=== PATIENT | male | born 1975 | race American Indian/Alaskan Native ===

== ENCOUNTER 2016-10-21 04:48 | Emergency (ER) | payer OTHER ==
[2016-10-21] MEDS ORDERED: CATAPRES PO ONE ×2 (05:32→06:33)
[2016-10-21 06:02] LABS: Basophils % (Auto) 0.5 % (0.0-1.8); Eosinophils % (Auto) 4.6 % (0.0-4.3); Hematocrit 37.9 % (35.5-45.6); Hemoglobin 12.3 gm/dl (11.8-15.2); Mean Corpuscular HGB Conc 33 % (32-34); Mean Corpuscular Hemoglobin 26 pg (28-32); Mean Corpuscular Volume 81 fl (84-94); Platelet Count 221 K/mm3 (140-440); Red Blood Count 4.66 M/mm3 (3.65-5.03); Red Cell Distribution Width 15.1 % (13.2-15.2); White Blood Count 9.7 K/mm3 (4.5-11.0)
[2016-10-21] MEDS ORDERED: PROVENTIL IH ONE ×2 (06:05→07:49)
[2016-10-21 06:22] LABS: Anion Gap 17 mmol/L; Blood Urea Nitrogen 17 mg/dL (9-20); Carbon Dioxide 26 mmol/L (22-30); Chloride 98.9 mmol/L (98-107); Glucose 123 mg/dL (75-100); Potassium 3.5 mmol/L (3.6-5.0); Sodium 138 mmol/L (137-145)
[2016-10-21] MEDS ORDERED: DELTASONE PO ONE (06:33)
[2016-10-21] MEDS ORDERED: K-DUR PO ONE (06:37)
--- NOTE | 2016-10-21 06:37 | Emergency Department Report ---
ED Shortness of Breath HPI - General Chief Complaint: High BP Stated Complaint: ASTHMA Time Seen by Provider: 10/21/16 06:16 Source: patient Mode of arrival: Ambulatory Limitations: No Limitations - History of Present Illness Initial Comments: 40-year-old male with a past medical history of obesity, hypertension, sleep apnea, and asthma presents hospital complaints of shortness of breath 3 days. Symptoms worse with exertion. Some improvement with rest. Patient denies any chest pain. Positive cough productive yellow sputum on occasion. No fever, leg edema, or calf tenderness reported. Patient's been noncompliant with his blood pressure medications and asthma medications 1 month. PMD: None Previous medical record reviewed: Patient had a cardiac cath performed here with normal coronary arteries. Borderline LV function and received IV Lasix with improvement in his coughing. Echocardiogram performed showed EF of 55-60% - Related Data Previous Rx's Medication Instructions Recorded Last Taken Type Albuterol Sulfate [Albuterol 0.63% 0.63 mg IH TID #30 ml 03/17/15 Unknown Rx NEBS] Furosemide [Lasix TAB] 40 mg PO QDAY #30 tablet 03/17/15 Unknown Rx Spironolactone [Aldactone] 25 mg PO QDAY #30 tablet 03/17/15 Unknown Rx ALBUTEROL Inhaler [ProAir HFA 2 puff IH QID PRN #1 inhalation 10/21/16 Unknown Rx Inhaler] ALBUTEROL NEB's [Proventil 0.083% 2.5 mg IH TID PRN #1 box 10/21/16 Unknown Rx NEBS] Metoprolol [Lopressor TAB] 100 mg PO BID #60 tablet 10/21/16 Unknown Rx Prednisone [predniSONE 10 mg 10 mg PO .TAPER #1 tab.ds.pk 10/21/16 Unknown Rx (6-Day Pack, 21 Tabs)] Valsartan [Diovan] 320 mg PO QDAY #30 tablet 10/21/16 Unknown Rx amLODIPine [Norvasc] 10 mg PO DAILY #30 tablet 10/21/16 Unknown Rx Allergies Allergy/AdvReac Type Severity Reaction Status Date / Time aspirin Allergy Unknown Verified 03/13/15 04:40 shellfish derived Allergy Unknown Verified 03/15/15 15:18 ED Review of Systems ROS: Stated complaint: ASTHMA Other details as noted in HPI Comment: All other systems reviewed and negative Other: Constitutional: No fevers chills Eyes: No eye pain visual changes ENT: No ear pain or throat pain Neck: Denies pain Respiratory: As per HPI Cardiovascular: Denies chest pain GI: Denies abdominal pain, nausea, vomiting, diarrhea : Denies dysuria Musculoskeletal: Denies back pain Skin: Denies rash, lesions, erythema Neurologic: Denies headache, numbness, weakness ED Past Medical Hx - Past Medical History Hx Hypertension: Yes Hx Asthma: Yes Additional medical history: sleep apnea - Surgical History Past Surgical History?: No - Social History Smoking Status: Never Smoker Substance Use Type: None - Medications Home Medications: Home Medications Medication Instructions Recorded Confirmed Last Taken Type Albuterol Sulfate [Albuterol 0.63% 0.63 mg IH TID #30 ml 03/17/15 Unknown Rx NEBS] Furosemide [Lasix TAB] 40 mg PO QDAY #30 tablet 03/17/15 Unknown Rx Spironolactone [Aldactone] 25 mg PO QDAY #30 tablet 03/17/15 Unknown Rx ALBUTEROL Inhaler [ProAir HFA 2 puff IH QID PRN #1 inhalation 10/21/16 Unknown Rx Inhaler] ALBUTEROL NEB's [Proventil 0.083% 2.5 mg IH TID PRN #1 box 10/21/16 Unknown Rx NEBS] Metoprolol [Lopressor TAB] 100 mg PO BID #60 tablet 10/21/16 Unknown Rx Prednisone [predniSONE 10 mg 10 mg PO .TAPER #1 tab.ds.pk 10/21/16 Unknown Rx (6-Day Pack, 21 Tabs)] Valsartan [Diovan] 320 mg PO QDAY #30 tablet 10/21/16 Unknown Rx amLODIPine [Norvasc] 10 mg PO DAILY #30 tablet 10/21/16 Unknown Rx ED Physical Exam - General Limitations: No Limitations - Other Other exam information: General: No limitations, patient is alert in no acute distress Head exam: Atraumatic, normocephalic Eyes exam: Normal appearance, pupils equal reactive to light, extraocular movements intact ENT: Moist mucous membrane, normal oropharynx Neck exam: Normal inspection, full range of motion, no meningismus nontender Respiratory exam: Wheezing initially reported by triage nurse. I auscultated lungs while albuterol 5mg nebulized treatment was almost complete. Diminished breath sounds but no wheezes or crackles Cardiovascular: Mild tachycardia regular rhythm Abdomen: Soft, nondistended, and nontender, with normal bowel sounds, no rebound, or guarding Extremity: Full range of motion normal inspection no deformity, no calf tenderness or edema Back: Normal Inspection, full range of motion, no tenderness Neurologic: Alert, oriented x3, cranial nerves intact, no motor or sensory deficit Psychiatric: normal affect, normal mood Skin: Warm, dry, intactxam ED Course Vital Signs 10/21/16 10/21/16 10/21/16 05:17 05:41 06:26 Temperature 98.4 F Pulse Rate 102 H 102 H 105 H Pulse Rate [ Bilateral Throughout] Respiratory 24 19 Rate Respiratory Rate [Bilateral Throughout] Blood Pressure 206/136 206/136 195/121 Blood Pressure 206/136 [Left] O2 Sat by Pulse 96 97 Oximetry 10/21/16 10/21/16 10/21/16 06:30 06:33 06:39 Temperature Pulse Rate 104 H 98 H Pulse Rate [ Bilateral Throughout] Respiratory 17 Rate Respiratory Rate [Bilateral Throughout] Blood Pressure 180/134 191/121 Blood Pressure [Left] O2 Sat by Pulse 94 98 Oximetry 10/21/16 10/21/16 10/21/16 06:45 07:00 07:16 Temperature Pulse Rate 92 H 102 H 83 Pulse Rate [ Bilateral Throughout] Respiratory 20 23 23 Rate Respiratory Rate [Bilateral Throughout] Blood Pressure 169/127 187/114 188/107 Blood Pressure [Left] O2 Sat by Pulse 98 85 96 Oximetry 10/21/16 10/21/16 10/21/16 07:30 07:45 07:52 Temperature Pulse Rate 87 76 Pulse Rate [ 79 Bilateral Throughout] Respiratory 18 14 Rate Respiratory 24 Rate [Bilateral Throughout] Blood Pressure 180/122 182/109 Blood Pressure [Left] O2 Sat by Pulse 99 98 Oximetry 10/21/16 10/21/16 10/21/16 08:00 08:16 08:30 Temperature Pulse Rate 96 H 101 H 93 H Pulse Rate [ Bilateral Throughout] Respiratory 18 18 18 Rate Respiratory Rate [Bilateral Throughout] Blood Pressure 173/89 171/114 169/90 Blood Pressure [Left] O2 Sat by Pulse 90 95 96 Oximetry 10/21/16 08:48 Temperature Pulse Rate Pulse Rate [ 93 H Bilateral Throughout] Respiratory Rate Respiratory 24 Rate [Bilateral Throughout] Blood Pressure Blood Pressure [Left] O2 Sat by Pulse Oximetry - Reevaluation(s) Reevaluation #1: 10/21/16 10:31 The ED stay patient received multiple nebulizer treatments, by mouth prednisone , clonidine 0.2 mg ED Medical Decision Making - Lab Data Result diagrams: 10/21/16 05:34 10/21/16 05:34 Lab Results 10/21/16 10/21/16 10/21/16 Range/Units 05:34 05:34 05:34 WBC 9.7 (4.5-11.0) K/mm3 RBC 4.66 (3.65-5.03) M/mm3 Hgb 12.3 (11.8-15.2) gm/dl Hct 37.9 (35.5-45.6) % MCV 81 L (84-94) fl MCH 26 L (28-32) pg MCHC 33 (32-34) % RDW 15.1 (13.2-15.2) % Plt Count 221 (140-440) K/mm3 Lymph % (Auto) 20.6 (13.4-35.0) % [place] % (Auto) 11.4 H (0.0-7.3) % Eos % (Auto) 4.6 H (0.0-4.3) % Baso % (Auto) 0.5 (0.0-1.8) % Lymph # 2.0 (1.2-5.4) K/mm3 [place] # 1.1 H (0.0-0.8) K/mm3 Eos # 0.4 (0.0-0.4) K/mm3 Baso # 0.0 (0.0-0.1) K/mm3 Seg Neutrophils % 62.9 (40.0-70.0) % Seg Neutrophils # 6.1 (1.8-7.7) K/mm3 Sodium 138 (137-145) mmol/L Potassium 3.5 L (3.6-5.0) mmol/L Chloride 98.9 (98-107) mmol/L Carbon Dioxide 26 (22-30) mmol/L Anion Gap 17 mmol/L BUN 17 (9-20) mg/dL Creatinine 1.0 (0.8-1.5) mg/dL Estimated GFR > 60 ml/min BUN/Creatinine Ratio 17.00 % Glucose 123 H (75-100) mg/dL Calcium 9.0 (8.4-10.2) mg/dL Troponin T < 0.010 (0.00-0.029) ng/mL NT-Pro-B Natriuret Pep 241.3 (0-450) pg/mL - EKG Data -: EKG Interpreted by Me (sinus 103 LVH with repo abnormality inferolateral T inversion) - EKG Data When compared to previous EKG there are: no significant change (compared to ) - Radiology Data Radiology results: report reviewed (cxr: normal) - Medical Decision Making Patient tolerated exertion the ED after treatment. Patient feels better. Will be discharged on meds. Out of all the previous medication patient is still taking amlodipine, Diovan, metoprolol, and albuterol treatments. These medications will be refilled with one-month refill. Patient encouraged to follow with [facility]. He has not sprionolactone OR LASIX since his prescription ran out from his 02/2015 admission. Blood pressure improved with clonidine. Pt also received Potassium po - Differential Diagnosis CHF, asthma, bronchitis, pneumonia Critical Care Time: No Critical care attestation.: If time is entered above; I have spent that time in minutes in the direct care of this critically ill patient, excluding procedure time. ED Disposition Clinical Impression: Asthma exacerbation, Hypertensive urgency, Noncompliance with medication regimen, Hypokalemia Disposition: DISCHARGED TO HOME OR SELFCARE Is pt being admited?: No Does the pt Need Aspirin: No Condition: Stable Instructions: Hypertension (ED), Asthma (ED) Additional Instructions: Take the medications as prescribed. Follow-up with the clinic or physician provided. Return if symptoms worsen. Prescriptions: ALBUTEROL Inhaler [ProAir HFA Inhaler] 2 puff IH QID PRN #1 inhalation PRN Reason: Shortness Of Breath ALBUTEROL NEB's [Proventil 0.083% NEBS] 2.5 mg IH TID PRN #1 box PRN Reason: Wheezing amLODIPine [Norvasc] 10 mg PO DAILY #30 tablet Metoprolol [Lopressor TAB] 100 mg PO BID #60 tablet Prednisone [predniSONE 10 mg (6-Day Pack, 21 Tabs)] 10 mg PO .TAPER #1 tab.ds.pk Valsartan [Diovan] 320 mg PO QDAY #30 tablet Referrals: [facility] [Provider Group] - 3-5 Days (Primary care clinic) CURTIS TERRY MD [Staff Physician] - 3-5 Days (Primary care doctor) Time of Disposition: 10:31
--- NOTE | 2016-10-21 07:04 | XRay Report ---
FINAL REPORT PROCEDURE: XR CHEST ROUTINE 2V TECHNIQUE: PA and lateral chest radiographs were obtained. CPT 48406 HISTORY: Shortness of breath COMPARISON: No prior studies are available for comparison. FINDINGS: Heart: Normal. Mediastinum/Vessels: Normal. Lungs/Pleural space: Normal. Bony thorax: No acute osseous abnormality. Other: IMPRESSION: Normal examination.
[2016-10-21] MEDS ORDERED: ATROVENT IH ONE ×2 (07:49→07:50)
[2016-10-21 09:58] VITALS: BP 174/115
== END 2016-10-21 10:38 | disposition home or self-care (01) ==
LOC: ED 04:48
DX: J45.901 Unspecified asthma with (acute) exacerbation (principal); I10 Essential (primary) hypertension; E87.6 Hypokalemia; Z88.6 Allergy status to analgesic agent; Z91.14 Patient's other noncompliance with medication regimen; Z91.013 Allergy to seafood
CPT/HCPCS: 36415; 71020; 80048; 83880; 84484; 85025; 93005; 93010; 94640; 94644; 99284; J7512

== ENCOUNTER 2017-10-10 14:46 | Emergency (ER) | payer SELFPAY ==
[2017-10-10 15:56] LABS: Basophils # (Auto) 0.1 K/mm3 (0.0-0.1); Basophils % (Auto) 0.7 % (0.0-1.8); Eosinophils # (Auto) 0.3 K/mm3 (0.0-0.4); Eosinophils % (Auto) 2.9 % (0.0-4.3); Hematocrit 46.2 % (35.5-45.6); Hemoglobin 15.4 gm/dl (11.8-15.2); Lymphocytes # (Auto) 2.1 K/mm3 (1.2-5.4); Lymphocytes % (Auto) 23.3 % (13.4-35.0); Mean Corpuscular HGB Conc 33 % (32-34); Mean Corpuscular Hemoglobin 27 pg (28-32); Mean Corpuscular Volume 80 fl (84-94); Monocytes # (Auto) 1.1 K/mm3 (0.0-0.8); Monocytes % (Auto) 12.3 % (0.0-7.3); Platelet Count 264 K/mm3 (140-440); Red Blood Count 5.81 M/mm3 (3.65-5.03)
[2017-10-10 16:27] LABS: BUN/Creatinine Ratio 22; Blood Urea Nitrogen 20 mg/dL (9-20); Calcium 9.3 mg/dL (8.4-10.2); Hemolysis Index 50
[2017-10-10] MEDS ORDERED: HumuLIN R IV ONE (17:02)
[2017-10-10] MEDS ORDERED: NACL 0.9% 1000 ML 2,000 ML IV ONE (17:02)
--- NOTE | 2017-10-10 17:06 | Emergency Department Report ---
ED General Adult HPI - General Chief complaint: Hyperglycemia Stated complaint: BLURRED VISON Time Seen by Provider: 10/10/17 16:49 Source: patient, RN notes reviewed Mode of arrival: Ambulatory Limitations: No Limitations - History of Present Illness Initial comments: This is a 41-year-old male who was previously unknown to this provider. He does not have a local primary care doctor. Past medical history includes obesity, hypertension, possible asthma. He presents to the ER with a complaint of increased thirst, increased urination, and binocular blurry vision. He is not having any pain. His symptoms are constant. They do not radiate anywhere. They do not have exacerbating or relieving factors. As far as he knows, he does not have a history of diabetes. -: Gradual Consistency: constant Improves with: none Worsens with: none Associated Symptoms: other (increased thirst, increased urination, dry mouth, blurry vision). denies: confusion, chest pain, cough, diaphoresis, fever/chills , headaches, loss of appetite, malaise, nausea/vomiting, rash, seizure, shortness of breath, syncope, weakness Treatments Prior to Arrival: none - Related Data Previous Rx's Medication Instructions Recorded Last Taken Type Albuterol Sulfate [Albuterol 0.63% 0.63 mg IH TID #30 ml 03/17/15 Unknown Rx NEBS] Furosemide [Lasix TAB] 40 mg PO QDAY #30 tablet 03/17/15 Unknown Rx Spironolactone [Aldactone] 25 mg PO QDAY #30 tablet 03/17/15 Unknown Rx ALBUTEROL Inhaler [ProAir HFA 2 puff IH QID PRN #1 inhalation 10/21/16 Unknown Rx Inhaler] ALBUTEROL NEB's [Proventil 0.083% 2.5 mg IH TID PRN #1 box 10/21/16 Unknown Rx NEBS] Metoprolol [Lopressor TAB] 100 mg PO BID #60 tablet 10/21/16 Unknown Rx Prednisone [predniSONE 10 mg 10 mg PO .TAPER #1 tab.ds.pk 10/21/16 Unknown Rx (6-Day Pack, 21 Tabs)] Valsartan [Diovan] 320 mg PO QDAY #30 tablet 10/21/16 Unknown Rx amLODIPine [Norvasc] 10 mg PO DAILY #30 tablet 10/21/16 Unknown Rx Allergies Allergy/AdvReac Type Severity Reaction Status Date / Time aspirin Allergy Unknown Verified 03/13/15 04:40 shellfish derived Allergy Unknown Verified 03/15/15 15:18 ED Review of Systems ROS: Stated complaint: BLURRED VISON Other details as noted in HPI Comment: All other systems reviewed and negative ED Past Medical Hx - Past Medical History Hx Hypertension: Yes Hx Asthma: Yes Additional medical history: sleep apnea - Social History Smoking Status: Never Smoker Substance Use Type: Alcohol - Medications Home Medications: Home Medications Medication Instructions Recorded Confirmed Last Taken Type Albuterol Sulfate [Albuterol 0.63% 0.63 mg IH TID #30 ml 03/17/15 Unknown Rx NEBS] Furosemide [Lasix TAB] 40 mg PO QDAY #30 tablet 03/17/15 Unknown Rx Spironolactone [Aldactone] 25 mg PO QDAY #30 tablet 03/17/15 Unknown Rx ALBUTEROL Inhaler [ProAir HFA 2 puff IH QID PRN #1 inhalation 10/21/16 Unknown Rx Inhaler] ALBUTEROL NEB's [Proventil 0.083% 2.5 mg IH TID PRN #1 box 10/21/16 Unknown Rx NEBS] Metoprolol [Lopressor TAB] 100 mg PO BID #60 tablet 10/21/16 Unknown Rx Prednisone [predniSONE 10 mg 10 mg PO .TAPER #1 tab.ds.pk 10/21/16 Unknown Rx (6-Day Pack, 21 Tabs)] Valsartan [Diovan] 320 mg PO QDAY #30 tablet 10/21/16 Unknown Rx amLODIPine [Norvasc] 10 mg PO DAILY #30 tablet 10/21/16 Unknown Rx ED Physical Exam - General Limitations: No Limitations General appearance: alert, in no apparent distress - Head Head exam: Present: atraumatic, normocephalic - Eye Eye exam: Present: normal appearance (there are no visual field cuts on direct confrontation), PERRL, EOMI, other (visual acuity intact to finger counting, color perception, reading at a close distance). Absent: nystagmus - ENT ENT exam: Present: normal exam, normal orophraynx, mucous membranes moist, normal external ear exam - Neck Neck exam: Present: normal inspection, full ROM. Absent: tenderness, meningismus - Respiratory Respiratory exam: Present: normal lung sounds bilaterally. Absent: respiratory distress - Cardiovascular Cardiovascular Exam: Present: regular rate, normal rhythm, normal heart sounds. Absent: bradycardia, tachycardia, irregular rhythm, systolic murmur, diastolic murmur, rubs, gallop - GI/Abdominal GI/Abdominal exam: Present: soft, normal bowel sounds. Absent: distended, tenderness, guarding, rebound, rigid, pulsatile mass - Rectal Rectal exam: Present: deferred - Extremities Exam Extremities exam: Present: normal inspection, full ROM, normal capillary refill. Absent: tenderness, pedal edema, joint swelling, calf tenderness - Back Exam Back exam: Present: normal inspection, full ROM. Absent: tenderness, CVA tenderness (R), paraspinal tenderness, vertebral tenderness - Neurological Exam Neurological exam: Present: alert, oriented X3, CN II-XII intact, normal gait ( negative pronator drift. Negative Romberg. Normal gait. Normal tandem gait. No pass pointing.), other (Extraocular movements intact. Tongue midline. No facial droop. Facial sensation intact to light touch in the V1, V2, V3 distribution bilaterally. 5 and 5 strength in 4 extremities.. Sensation is intact to light touch in 4 extremities.). Absent: motor sensory deficit - Psychiatric Psychiatric exam: Present: normal affect, normal mood - Skin Skin exam: Present: warm, dry, intact, normal color. Absent: rash ED Course Vital Signs 10/10/17 10/10/17 10/10/17 15:12 16:50 17:23 Temperature 98.7 F 97.7 F Pulse Rate 92 H 84 Respiratory 18 16 Rate Blood Pressure 156/96 Blood Pressure 122/74 [Left] O2 Sat by Pulse 96 95 96 Oximetry - Reevaluation(s) Reevaluation #1: 10/10/17 18:54 Glucose is improved. Patient feels improved. CAT scan of the brain is negative. Patient will be discharged. He again prefers to attempt diet and lifestyle modifications. ED Medical Decision Making - Lab Data Result diagrams: 10/10/17 15:21 10/10/17 15:21 Vital Signs 10/10/17 15:12 Temperature 98.7 F Pulse Rate 92 H Respiratory 18 Rate Blood Pressure 156/96 O2 Sat by Pulse 96 Oximetry Lab Results 10/10/17 10/10/17 10/10/17 Range/Units 15:21 15:21 15:21 WBC 8.9 (4.5-11.0) K/mm3 RBC 5.81 H (3.65-5.03) M/mm3 Hgb 15.4 H (11.8-15.2) gm/dl Hct 46.2 H (35.5-45.6) % MCV 80 L (84-94) fl MCH 27 L (28-32) pg MCHC 33 (32-34) % RDW 15.0 (13.2-15.2) % Plt Count 264 (140-440) K/mm3 Lymph % (Auto) 23.3 (13.4-35.0) % [place] % (Auto) 12.3 H (0.0-7.3) % Eos % (Auto) 2.9 (0.0-4.3) % Baso % (Auto) 0.7 (0.0-1.8) % Lymph # 2.1 (1.2-5.4) K/mm3 [place] # 1.1 H (0.0-0.8) K/mm3 Eos # 0.3 (0.0-0.4) K/mm3 Baso # 0.1 (0.0-0.1) K/mm3 Seg Neutrophils % 60.8 (40.0-70.0) % Seg Neutrophils # 5.4 (1.8-7.7) K/mm3 VBG pH 7.314 L (7.320-7.420) Sodium 135 L (137-145) mmol/L Potassium 4.9 (3.6-5.0) mmol/L Chloride 91.7 L (98-107) mmol/L Carbon Dioxide 28 (22-30) mmol/L Anion Gap 20 mmol/L BUN 20 (9-20) mg/dL Creatinine 0.9 (0.8-1.5) mg/dL Estimated GFR > 60 ml/min BUN/Creatinine Ratio 22 % Glucose 345 H (75-100) mg/dL POC Glucose (70-105) Calcium 9.3 (8.4-10.2) mg/dL 10/10/17 Range/Units 15:21 WBC (4.5-11.0) K/mm3 RBC (3.65-5.03) M/mm3 Hgb (11.8-15.2) gm/dl Hct (35.5-45.6) % MCV (84-94) fl MCH (28-32) pg MCHC (32-34) % RDW (13.2-15.2) % Plt Count (140-440) K/mm3 Lymph % (Auto) (13.4-35.0) % [place] % (Auto) (0.0-7.3) % Eos % (Auto) (0.0-4.3) % Baso % (Auto) (0.0-1.8) % Lymph # (1.2-5.4) K/mm3 [place] # (0.0-0.8) K/mm3 Eos # (0.0-0.4) K/mm3 Baso # (0.0-0.1) K/mm3 Seg Neutrophils % (40.0-70.0) % Seg Neutrophils # (1.8-7.7) K/mm3 VBG pH (7.320-7.420) Sodium (137-145) mmol/L Potassium (3.6-5.0) mmol/L Chloride (98-107) mmol/L Carbon Dioxide (22-30) mmol/L Anion Gap mmol/L BUN (9-20) mg/dL Creatinine (0.8-1.5) mg/dL Estimated GFR ml/min BUN/Creatinine Ratio % Glucose (75-100) mg/dL POC Glucose 311 H (70-105) Calcium (8.4-10.2) mg/dL - Radiology Data Radiology results: report reviewed, image reviewed Noncontrast CT scan of the brain is negative for acute disease - Medical Decision Making Differential diagnosis, including but not limited to: New-onset diabetes, diabetic ketoacidosis, hyperosmolar state Assessment and plan: 41-year-old male with probable new onset diabetes, hyperosmolar, anion gap of 20, nonfocal neurologic examination, GCS of 15, with an NIH score of 0, with no focal neurologic deficits. Extensive discussion had with patient and family. The patient prefers to pursue diet and lifestyle modifications. He will be referred to the [place] [employer] website for lifestyle and diet planning. He is instructed to engage in physical activity, dietary modifications, and close outpatient follow-up. He will be given IV fluids intensive insulin. Critical care attestation.: If time is entered above; I have spent that time in minutes in the direct care of this critically ill patient, excluding procedure time. ED Disposition Clinical Impression: Hyperglycemia Disposition: DC-01 TO HOME OR SELFCARE Is pt being admited?: No Does the pt Need Aspirin: No Condition: Good Instructions: Meal Planning with Diabetes Exchanges (DC), Diabetic Retinopathy (ED) Additional Instructions: As we discussed, symptoms likely coming from new onset diabetes. Make certain to increase physical activity, and modify all diet as we have discussed. http://www.diabetes.org/jqpx-ccp-ywleubl/food/planning-meals/qntfwcyq-jyca-mqnjl -sgj-x-esoiycc-diet.[email or web address] Please follow-up with the primary care doctor within the next 4-6 weeks for your elevated blood pressure and elevated blood sugar. Long-term complications of hypertension, elevated blood pressure, elevated blood sugar can result in stroke, disability, paralysis, loss of quality of life. Return to the ER right away with new pain, worsened pain, migration of pain, fevers, chills, lethargy, irritability, projectile vomiting, change in mental status, confusion, inability to tolerate liquid feeds. Referrals: PRIMARY CAREMD [Primary Care Provider] - 3-5 Days JAYSHREE LEVIN MD [Staff Physician] - 3-5 Days [facility] [Provider Group] - 3-5 Days
--- NOTE | 2017-10-10 18:44 | Cat Scan Report ---
FINAL REPORT EXAM: CT HEAD/BRAIN WO CON HISTORY: blurry vision TECHNIQUE: CT of the Head without IV contrast. PRIORS: None currently available. FINDINGS: There is no evidence for acute ischemia. There is no hemorrhage. There is no midline shift. There is no hydrocephalus. There is no mass. Age appropriate [place]-white matter attenuation is noted. There is no calvarial fracture. The temporal bones demonstrate aerated mastoid air cells. The middle ears appear unremarkable. 1.6 and 1.7 cm retention cysts in the left sphenoid sinus. Mild mucosal thickening in both ethmoid sinuses. Globes are intact. IMPRESSION: No acute intracranial findings.
[2017-10-10 19:35] VITALS: BP 157/76
== END 2017-10-10 19:05 | disposition home or self-care (01) ==
LOC: ED 14:46
DX: E11.65 Type 2 diabetes mellitus with hyperglycemia (principal); J45.909 Unspecified asthma, uncomplicated; I10 Essential (primary) hypertension; Z91.013 Allergy to seafood
CPT/HCPCS: 36415; 70450; 80048; 82805; 82962; 85025; 96361; 96374; 99284; J7030; J1815

== ENCOUNTER 2017-11-08 | Inpatient (IN) | payer SELFPAY ==
[2017-11-08 02:53] LABS: Basophils # (Auto) 0.1 K/mm3 (0.0-0.1); Basophils % (Auto) 0.7 % (0.0-1.8); Eosinophils # (Auto) 0.4 K/mm3 (0.0-0.4); Hematocrit 44.4 % (35.5-45.6); Hemoglobin 14.9 gm/dl (11.8-15.2); Lymphocytes # (Auto) 1.9 K/mm3 (1.2-5.4); Lymphocytes % (Auto) 20.6 % (13.4-35.0); Mean Corpuscular HGB Conc 34 % (32-34); Mean Corpuscular Hemoglobin 28 pg (28-32); Mean Corpuscular Volume 84 fl (84-94); Monocytes # (Auto) 1.3 K/mm3 (0.0-0.8); Monocytes % (Auto) 13.7 % (0.0-7.3); Platelet Count 251 K/mm3 (140-440); Red Blood Count 5.28 M/mm3 (3.65-5.03); Red Cell Distribution Width 15.2 % (13.2-15.2)
[2017-11-08 03:08] LABS: BUN/Creatinine Ratio 22; Blood Urea Nitrogen 24 mg/dL (9-20); Calcium 9.2 mg/dL (8.4-10.2); Hemolysis Index 54
[2017-11-08 03:24] LABS: Bilirubin,Urine NEG (Negative); Blood,Urine NEG (Negative); Color,Urine Straw (Yellow); Mucus,Urine FEW /HPF; Protein,Urine <15 mg/dL mg/dL (Negative); RBC,Urine < 1.0 /HPF (0.0-6.0); Urobilinogen,Urine < 2.0 mg/dL (<2.0)
[2017-11-08] MEDS ORDERED: NACL 0.9% 1000 ML 2,000 ML ONE (03:45)
[2017-11-08] MEDS ORDERED: NACL 0.9% 1000 ML 1,000 ML IV ONE (04:30)
[2017-11-08] MEDS ORDERED: D50W (25GM) Syringe IV PRN (04:30)
--- NOTE | 2017-11-08 04:42 | Emergency Department Report ---
HPI - General Chief Complaint: Extremity Injury, Lower Time Seen by Provider: 11/08/17 04:23 - HPI HPI: 41-year-old -Polish male presents to the emergency department with a complaint of some pain and swelling to the anterior right leg, around the gould, and has been going on for the past 2 days. He states that he has a history of cellulitis in that same area previously. Patient was found to have very elevated blood sugar level. He says that he was recently diagnosed with diabetes last month and placed on metformin which she takes 500 mg twice daily. He says that he missed his dose last night. He admits to increased urination and increased thirst. He denies any fever, abdominal pain, vomiting but does have some nausea. No recent travel or sick contacts at home. He has not taken anything for her symptoms prior to presentation. ED Past Medical Hx - Past Medical History Previous Medical History?: Yes Hx Hypertension: Yes Hx Diabetes: Yes Hx Asthma: Yes Additional medical history: sleep apnea - Surgical History Past Surgical History?: Yes Additional Surgical History: Hernia repair - Social History Smoking Status: Never Smoker Substance Use Type: None - Medications Home Medications: Home Medications Medication Instructions Recorded Confirmed Last Taken Type Albuterol Sulfate [Albuterol 0.63% 0.63 mg IH TID #30 ml 03/17/15 Unknown Rx NEBS] Furosemide [Lasix TAB] 40 mg PO QDAY #30 tablet 03/17/15 Unknown Rx Spironolactone [Aldactone] 25 mg PO QDAY #30 tablet 03/17/15 Unknown Rx ALBUTEROL Inhaler [ProAir HFA 2 puff IH QID PRN #1 inhalation 10/21/16 Unknown Rx Inhaler] ALBUTEROL NEB's [Proventil 0.083% 2.5 mg IH TID PRN #1 box 10/21/16 Unknown Rx NEBS] Metoprolol [Lopressor TAB] 100 mg PO BID #60 tablet 10/21/16 Unknown Rx Prednisone [predniSONE 10 mg 10 mg PO .TAPER #1 tab.ds.pk 10/21/16 Unknown Rx (6-Day Pack, 21 Tabs)] Valsartan [Diovan] 320 mg PO QDAY #30 tablet 10/21/16 Unknown Rx amLODIPine [Norvasc] 10 mg PO DAILY #30 tablet 10/21/16 Unknown Rx ED Review of Systems ROS: Stated complaint: RIGHT LEG INJURY Other details as noted in HPI Comment: All other systems reviewed and negative Constitutional: denies: chills, fever Eyes: denies: eye pain, eye discharge, vision change ENT: denies: ear pain, throat pain Respiratory: denies: cough, shortness of breath, wheezing Cardiovascular: denies: chest pain, palpitations Gastrointestinal: nausea. denies: abdominal pain, vomiting, diarrhea Genitourinary: denies: urgency, dysuria Musculoskeletal: arthralgia, myalgia Skin: rash. denies: pruritus Neurological: denies: headache, weakness, paresthesias Physical Exam - Physical Exam Vital Signs: Vital Signs 11/08/17 11/08/17 11/08/17 01:13 01:29 04:32 Temperature 97.6 F 97.6 F Pulse Rate 108 H 108 H Respiratory 18 16 Rate Blood Pressure 146/96 146/96 O2 Sat by Pulse 95 96 98 Oximetry Physical Exam: GENERAL: The patient is well-developed well-nourished. HENT: Normocephalic. Atraumatic. Patient has moist mucous membranes. EYES: Extraocular motions are intact. Pupils equal reactive to light bilaterally. NECK: Supple. Trachea is midline. CHEST/LUNGS: Clear to auscultation. There is no respiratory distress noted. HEART/CARDIOVASCULAR: Regular. There is no tachycardia. There is no murmur. ABDOMEN: Abdomen is soft, nontender. Patient has normal bowel sounds. There is no abdominal distention. SKIN: Skin is warm and dry. There is some area of darkening skin as well as some erythema and warmth to the right anterior mid tib-fib. In the middle of this, there is a small fluctuant area that is about 2 inches in diameter that appears consistent with an abscess. NEURO: The patient is awake, alert, and oriented. The patient is cooperative. The patient has no focal neurologic deficits. The patient has normal speech. MUSCULOSKELETAL: There is tenderness palpation to the right anterior gould with the patient appears to have a cellulitis and abscess. There is no limitation range of motion. ED Course Vital Signs 11/08/17 11/08/17 11/08/17 01:13 01:29 04:32 Temperature 97.6 F 97.6 F Pulse Rate 108 H 108 H Respiratory 18 16 Rate Blood Pressure 146/96 146/96 O2 Sat by Pulse 95 96 98 Oximetry ED Medical Decision Making - Lab Data Result diagrams: 11/08/17 02:03 11/08/17 04:25 - Radiology Data Radiology results: image reviewed interpreted by me: X-ray of the right tib-fib does not show any fracture, dislocation or signs of osteomyelitis. - Medical Decision Making Patient presents with the complaint of some pain and swelling to the right gould appears to have a cellulitis and small abscess. However his labs show that he is in diabetic ketoacidosis with venous acidosis, anion gap of 25, a blood sugar of 620 and ketones in the urine. He has been placed on an insulin drip, is receiving IV fluid resuscitation, and has been given IV antibiotics. He will be admitted to the hospital for further evaluation and treatment and has been accepted for admission by the hospitalist, Dr. Shafer. Portions of this chart were dictated using dictation software, and therefore there may be some dictation errors within this note. - Differential Diagnosis DKA, HHNK, cellulitis, abscess, venous stasis Critical Care Time: No Critical care attestation.: If time is entered above; I have spent that time in minutes in the direct care of this critically ill patient, excluding procedure time. ED Disposition Clinical Impression: Cellulitis of right leg, Abscess of right leg Diabetic ketoacidosis Qualifiers: Diabetes mellitus type: type 2 Diabetes mellitus complication detail: without coma Qualified Code(s): E11.10 - Type 2 diabetes mellitus with ketoacidosis without coma Disposition: OP ADMIT IP TO THIS HOSP Is pt being admited?: Yes Condition: Fair Instructions: Diabetic Ketoacidosis (ED) Referrals: PRIMARY CARE, [Primary Care Provider] - 3-5 Days Time of Disposition: 05:27
[2017-11-08] MEDS ORDERED: VANCOMYCIN/NS 1 GM/250 ML 1 GM/250 ML BAG IV SCH (05:00)
--- NOTE | 2017-11-08 05:04 | XRay Report ---
FINAL REPORT PROCEDURE: XR TIBIA FIBULA 2V RT TECHNIQUE: RIGHT tibia and fibula radiographs, AP and lateral views. CPT 74663 HISTORY: right gould pain COMPARISON: No prior studies are available for comparison. FINDINGS: Fracture (s) and/or Dislocation(s): None . Joint space(s): Normal . Soft tissues: Normal . Bone mineralization: Normal . Foreign bodies: None . IMPRESSION: Normal Examination.
[2017-11-08 05:05] LABS: BUN/Creatinine Ratio 24; Blood Urea Nitrogen 24 mg/dL (9-20); Calcium 9.3 mg/dL (8.4-10.2); Hemolysis Index 30
[2017-11-08] MEDS: HumuLIN R 100 UNITS in NACL 0.9% 99 ML IV SCH (05:28)
[2017-11-08] MEDS ORDERED: ZOFRAN IV PRN (05:35)
[2017-11-08] MEDS ORDERED: SODIUM CHLORIDE FLUSH SYRINGE 10 ML IV PRN (05:35)
[2017-11-08] MEDS ORDERED: TYLENOL PO PRN (05:35)
[2017-11-08] MEDS ORDERED: APRESOLINE IV PRN (05:40)
--- NOTE | 2017-11-08 05:44 | History and Physical Report ---
History of Present Illness Date of examination: 11/08/17 History of present illness: 41 year-old man with history of hypertension, diabetes, JASMYNE comes to the ER for evaluation of nausea, weak and tired. Also complain of pain on the anterior RLE that started 1 week ago. Denies traums, had cellulitis in the area before. No fever Review of systems Constitutional: no weight loss, chills Ears, eyes, nose, mouth and throat: no nasal congestion, no nasal discharge, no sinus pressure, no vision change, no red eye. Neck: No neck pain or rigidity. Cardiovascular: no chest pain, palpitations Respiratory: no cough, shortness of breath Gastrointestinal: no abdominal pain, hematochezia Genitourinary : no frequency , no hematuria Musculoskeletal: no joint swelling or muscle ache Integumentary: no rash, no pruritis Neurological: no parathesias, no numbness, no focal weakness Endocrine: no cold or heat intolerance, no polyuria or polydipsia Hematologic/Lymphatic: no easy bruising, no easy bleeding, no gland swelling Allergic/Immunologic: no urticaria, no angioedema. PAST MEDICAL HISTORY: hypertension, diabetes, JASMYNE PAST SURGICAL HISTORY: hernia reapir SOCIAL HISTORY: No alcohol abuse,tobacco, no drugs FAMILY HISTORY: Hypertension Medications and Allergies Allergies Allergy/AdvReac Type Severity Reaction Status Date / Time aspirin Allergy Unknown Verified 03/13/15 04:40 shellfish derived Allergy Unknown Verified 03/15/15 15:18 Home Medications Medication Instructions Recorded Confirmed Last Taken Type Albuterol Sulfate [Albuterol 0.63% 0.63 mg IH TID #30 ml 03/17/15 Unknown Rx NEBS] Furosemide [Lasix TAB] 40 mg PO QDAY #30 tablet 03/17/15 Unknown Rx Spironolactone [Aldactone] 25 mg PO QDAY #30 tablet 03/17/15 Unknown Rx ALBUTEROL Inhaler [ProAir HFA 2 puff IH QID PRN #1 inhalation 10/21/16 Unknown Rx Inhaler] ALBUTEROL NEB's [Proventil 0.083% 2.5 mg IH TID PRN #1 box 10/21/16 Unknown Rx NEBS] Metoprolol [Lopressor TAB] 100 mg PO BID #60 tablet 10/21/16 Unknown Rx Prednisone [predniSONE 10 mg 10 mg PO .TAPER #1 tab.ds.pk 10/21/16 Unknown Rx (6-Day Pack, 21 Tabs)] Valsartan [Diovan] 320 mg PO QDAY #30 tablet 10/21/16 Unknown Rx amLODIPine [Norvasc] 10 mg PO DAILY #30 tablet 10/21/16 Unknown Rx Active Meds: Active Medications Acetaminophen (Tylenol) 650 mg PO Q4H PRN PRN Reason: Pain MILD(1-3)/Fever >100.5/FITCH Dextrose (D50w (25gm) Syringe) 0 ml IV PRN PRN PRN Reason: Hypoglycemia Enoxaparin Sodium (Lovenox) 30 mg SUB-Q QDAY ADONIS Hydralazine HCl (Apresoline) 5 mg IV Q6HR PRN PRN Reason: Hypertension Insulin Human Regular 100 (units/ Sodium Chloride) 100 mls @ 5 mls/hr IV TITR ADONIS; Protocol Last Admin: 11/08/17 05:28 Dose: 8 units/hr, 8 mls/hr Vancomycin HCl (Vancomycin/Ns 1 Gm/250 Ml) 1 gm in 250 mls @ 167.007 mls/hr IV ONCE ADONIS; Protocol Stop: 11/08/17 06:30 Last Admin: 11/08/17 05:28 Dose: 167.007 mls/hr Ceftriaxone Sodium 1 gm/ (Sodium Chloride) 20 mls @ 20 mls/10 min IV Q24HR DAONIS ; Protocol Dextrose/Sodium Chloride (D5/0.45ns) 1,000 mls @ 150 mls/hr IV DIRECT ADONIS Sodium Chloride (Nacl 0.9% 1000 Ml) 1,000 mls @ 150 mls/hr IV DIRECT ADONIS Ondansetron HCl (Zofran) 4 mg IV Q4H PRN PRN Reason: Nausea And Vomiting Oxycodone/Acetaminophen (Percocet 5/325) 1 tab PO Q6H PRN PRN Reason: Pain, Moderate (4-6) Sodium Chloride (Sodium Chloride Flush Syringe 10 Ml) 10 ml IV BID ADONIS Sodium Chloride (Sodium Chloride Flush Syringe 10 Ml) 10 ml IV PRN PRN PRN Reason: LINE FLUSH Exam - Physical Exam Narrative exam: Gen. appearance: Patient lying in bed in no acute distress, on BIPAP HEENT: Normocephalic/atraumatic, pupils equal round reactive to light, extra occular movement intact, no scleral icterus, no JVD or thyromegaly or nodule, neck is supple, mucous membrane moist, no erythema or exudate Heart: S1-S2, regular rate and rhythm Lungs:Clear, breathing comfortable Abdomen: Positive bowel sounds, nontender, nondistended, no organomegaly Extremities: RLE- anterior, erythema, tender to touch, No edema, cyanosis, clubbing Neuro:: Oriented 3 , cranial nerves II-12 intact, speech, motor intact Skin: No rash, nodules, warm dry - Constitutional Vitals: Temp Pulse Resp BP Pulse Ox 97.6 F 108 H 16 146/96 98 11/08/17 01:29 11/08/17 01:29 11/08/17 04:32 11/08/17 01:29 11/08/17 04:32 Results - Labs CBC & Chem 7: 11/08/17 02:03 11/08/17 04:25 Labs: Abnormal lab results 11/08/17 11/08/17 11/08/17 Range/Units 01:43 02:03 02:03 RBC 5.28 H (3.65-5.03) M/mm3 [place] % (Auto) 13.7 H (0.0-7.3) % [place] # 1.3 H (0.0-0.8) K/mm3 VBG pH (7.320-7.420) Sodium 123 L (137-145) mmol/L Chloride 83.6 L (98-107) mmol/L Carbon Dioxide 19 L (22-30) mmol/L BUN 24 H (9-20) mg/dL Glucose 619 H* (75-100) mg/dL POC Glucose 492 H (70-105) 11/08/17 11/08/17 11/08/17 Range/Units 02:03 04:25 05:25 RBC (3.65-5.03) M/mm3 [place] % (Auto) (0.0-7.3) % [place] # (0.0-0.8) K/mm3 VBG pH 7.295 L (7.320-7.420) Sodium 126 L (137-145) mmol/L Chloride 86.0 L (98-107) mmol/L Carbon Dioxide 17 L (22-30) mmol/L BUN 24 H (9-20) mg/dL Glucose (75-100) mg/dL POC Glucose 433 H (70-105) Assessment and Plan Assessment DKA Cellulitis of RLE Hypertension JASMYNE Plan Admit to medicine Start DKA protocol with iv fluid,insulin drip Check fingersticks, check serial chemisty, HBA1C Start IV antibiotic, follow cultures Consult critica care, DVT prophalaxis
[2017-11-08] MEDS ORDERED: NACL 0.9% 1000 ML 1,000 ML IV SCH (06:00)
[2017-11-08 07:09] LABS: BUN/Creatinine Ratio 18; Blood Urea Nitrogen 21 mg/dL (9-20); Calcium 8.7 mg/dL (8.4-10.2); Hemolysis Index 25
[2017-11-08] MEDS: cefTRIAXone 1 GM in NACL 0.9% 20 ML IV SCH (07:26)
[2017-11-08 08:45] LABS: BUN/Creatinine Ratio 20; Blood Urea Nitrogen 18 mg/dL (9-20); Calcium 8.3 mg/dL (8.4-10.2); Hemolysis Index 9
[2017-11-08] MEDS ORDERED: LOVENOX SUB-Q SCH (10:00)
[2017-11-08] MEDS: SODIUM CHLORIDE FLUSH SYRINGE 10 ML IV SCH ×2 (11:02→23:02)
[2017-11-08] MEDS: LOVENOX SUB-Q SCH (11:02)
[2017-11-08 11:05] LABS: BUN/Creatinine Ratio 15; Blood Urea Nitrogen 17 mg/dL (9-20); Calcium 8.3 mg/dL (8.4-10.2); Hemolysis Index 32
[2017-11-08 13:09] LABS: BUN/Creatinine Ratio 19; Blood Urea Nitrogen 15 mg/dL (9-20); Calcium 8.4 mg/dL (8.4-10.2); Hemolysis Index 9
--- NOTE | 2017-11-08 15:53 | Progress Note ---
Assessment and Plan Assessment and plan: Patient is a 41 year-old man with a history of hypertension, recently diagnosis type 2 diabetes, JASMYNE comes to the ER for nausea and lethargy. Also complain of pain on the anterior RLE that started 1 week ago. He will be admitted to ICU. -DKA: anion gap still high, most likely due to infection of the right anterior tibia, continue insulin drip, IVF, npo, serial bmp -Acute metabolic encephalopathy with lethargy due to the above. -Cellulitis of RLE with abscess vs hematoma: consult Gen. surgery, start iv vancomycin -Hypertension: hold antihypertensive due to volume depletion, -JASMYNE: consult respiratory therapy -DVT prophylaxis: sq lovenox CCT 36 minutes History Interval history: Patient was seen and examined. Follow-up on current diagnosis of DKA. Overnight uneventful. Patient denies any chest pain, shortness breath, or severe headaches. Imaging, nursing note, chart, labs and old chart reviewed. Discussed with patient. Hospitalist Physical - Physical exam Narrative exam: GEN: WDWN, NAD, lethargic Orientated HEENT: NCAT, EOMI, PERRL, OP Clear but dry NECK: supple, no adenopathy, no thyromegaly, no JVD CVS/HEART: RRR, normal S1S2, pulses present bilaterally CHEST/LUNGS: CTA B, Symmetrical chest expansion, good air entry bilaterally GI/Abdomen: soft, NTND, good bowel sounds, no guarding or rebound /Bladder: no suprapubic tenderness, no CVA or paraspinal tenderness EXT/Skin: no c/c/e, no obvious rash MSK: FROM x 4 Neuro: CN 2-12 grossly intact, no new focal deficits Psych: calm - Constitutional Vitals: Temp Pulse Resp BP Pulse Ox 97.6 F 99 H 20 123/79 97 11/08/17 01:29 11/08/17 07:00 11/08/17 07:00 11/08/17 07:00 11/08/17 07:00 Results - Labs CBC & Chem 7: 11/08/17 02:03 11/08/17 12:16 Labs: Laboratory Last Values WBC 9.3 K/mm3 (4.5-11.0) 11/08/17 02:03 RBC 5.28 M/mm3 (3.65-5.03) H 11/08/17 02:03 Hgb 14.9 gm/dl (11.8-15.2) 11/08/17 02:03 Hct 44.4 % (35.5-45.6) 11/08/17 02:03 MCV 84 fl (84-94) 11/08/17 02:03 MCH 28 pg (28-32) 11/08/17 02:03 MCHC 34 % (32-34) 11/08/17 02:03 RDW 15.2 % (13.2-15.2) 11/08/17 02:03 Plt Count 251 K/mm3 (140-440) 11/08/17 02:03 Lymph % (Auto) 20.6 % (13.4-35.0) 11/08/17 02:03 [place] % (Auto) 13.7 % (0.0-7.3) H 11/08/17 02:03 Eos % (Auto) 4.0 % (0.0-4.3) 11/08/17 02:03 Baso % (Auto) 0.7 % (0.0-1.8) 11/08/17 02:03 Lymph # 1.9 K/mm3 (1.2-5.4) 11/08/17 02:03 [place] # 1.3 K/mm3 (0.0-0.8) H 11/08/17 02:03 Eos # 0.4 K/mm3 (0.0-0.4) 11/08/17 02:03 Baso # 0.1 K/mm3 (0.0-0.1) 11/08/17 02:03 Seg Neutrophils % 61.0 % (40.0-70.0) 11/08/17 02:03 Seg Neutrophils # 5.7 K/mm3 (1.8-7.7) 11/08/17 02:03 VBG pH 7.295 (7.320-7.420) L 11/08/17 02:03 Sodium 137 mmol/L (137-145) 11/08/17 12:16 Potassium 4.4 mmol/L (3.6-5.0) 11/08/17 12:16 Chloride 98.2 mmol/L (98-107) 11/08/17 12:16 Carbon Dioxide 20 mmol/L (22-30) L 11/08/17 12:16 Anion Gap 23 mmol/L 11/08/17 12:16 BUN 15 mg/dL (9-20) 11/08/17 12:16 Creatinine 0.8 mg/dL (0.8-1.5) 11/08/17 12:16 Estimated GFR > 60 ml/min 11/08/17 12:16 BUN/Creatinine Ratio 19 % 11/08/17 12:16 Glucose 196 mg/dL (75-100) H 11/08/17 12:16 POC Glucose 189 (70-105) H 11/08/17 14:23 Osmolality 310 Mosm/kg 11/08/17 04:25 Lactic Acid 1.10 mmol/L (0.7-2.0) 11/08/17 02:03 Calcium 8.4 mg/dL (8.4-10.2) 11/08/17 12:16 Urine Color Straw (Yellow) 11/08/17 Unknown Urine Turbidity Clear (Clear) 11/08/17 Unknown Urine pH 6.0 (5.0-7.0) 11/08/17 Unknown Ur Specific Hext 1.026 (1.003-1.030) 11/08/17 Unknown Urine Protein <15 mg/dl mg/dL (Negative) 11/08/17 Unknown Urine Glucose (UA) >=500 mg/dL (Negative) 11/08/17 Unknown Urine Ketones 80 mg/dL (Negative) 11/08/17 Unknown Urine Blood Neg (Negative) 11/08/17 Unknown Urine Nitrite Neg (Negative) 11/08/17 Unknown Urine Bilirubin Neg (Negative) 11/08/17 Unknown Urine Urobilinogen < 2.0 mg/dL (<2.0) 11/08/17 Unknown Ur Leukocyte Esterase Neg (Negative) 11/08/17 Unknown Urine WBC (Auto) 1.0 /HPF (0.0-6.0) 11/08/17 Unknown Urine RBC (Auto) < 1.0 /HPF (0.0-6.0) 11/08/17 Unknown Urine Mucus Few /HPF 11/08/17 Unknown
[2017-11-08] MEDS ORDERED: VANCOMYCIN PHARMACY TO DOSE IV SCH (16:00)
[2017-11-08] MEDS ORDERED: XYLOCAINE 1% 20 mL ONE (18:04)
[2017-11-08] MEDS ORDERED: XYLOCAINE 1% 20 mL INFILTRATI ONE (18:32)
--- NOTE | 2017-11-08 18:51 | Consultation ---
History of Present Illness Consult date: 11/08/17 Chief complaint: abscess - History of present illness History of present illness: 41 yo M with recently diagnosed DM on metformin presents with 3 days of not feeling very well. He states he has been feeling week with abdominal ache and nausea. He also has a bump on his right lower leg which is very uncomfortable and painful. He states he has had this before and it was treated with antibiotics 3 separate times over the course of many years but never drained. He denies f/c. No emesis. He was found to be in DKA in the ER and is on an insulin gtt. The patient denies trauma, bug bite. Past History Past Medical History: diabetes, hypertension Past Surgical History: hernia repair Social history: alcohol abuse (occasionally). denies: smoking, prescription drug abuse, IV drug use Family history: no significant family history Medications and Allergies Allergies Allergy/AdvReac Type Severity Reaction Status Date / Time aspirin Allergy Unknown Verified 03/13/15 04:40 shellfish derived Allergy Unknown Verified 03/15/15 15:18 Home Medications Medication Instructions Recorded Confirmed Last Taken Type ALBUTEROL Inhaler [ProAir HFA 2 puff IH QID PRN #1 inhalation 10/21/16 11/08/17 Unknown Rx Inhaler] Metoprolol [Lopressor TAB] 100 mg PO BID #60 tablet 10/21/16 11/08/17 Unknown Rx Valsartan [Diovan] 320 mg PO QDAY #30 tablet 10/21/16 11/08/17 Unknown Rx amLODIPine [Norvasc] 10 mg PO DAILY #30 tablet 10/21/16 11/08/17 Unknown Rx Active Meds: Active Medications Acetaminophen (Tylenol) 650 mg PO Q4H PRN PRN Reason: Pain MILD(1-3)/Fever >100.5/FITCH Dextrose (D50w (25gm) Syringe) 0 ml IV PRN PRN PRN Reason: Hypoglycemia Enoxaparin Sodium (Lovenox) 40 mg SUB-Q QDAY@1000 ADONIS Last Admin: 11/08/17 11:02 Dose: 40 mg Hydralazine HCl (Apresoline) 5 mg IV Q6HR PRN PRN Reason: Hypertension Insulin Human Regular 100 (units/ Sodium Chloride) 100 mls @ 5 mls/hr IV TITR ADONIS; Protocol Last Titration: 11/08/17 17:29 Dose: 3 units/hr, 3 mls/hr Ceftriaxone Sodium 1 gm/ (Sodium Chloride) 20 mls @ 20 mls/10 min IV Q24HR REPLACED BY [facility] ; Protocol Last Admin: 11/08/17 07:26 Dose: 20 mls/10 min Dextrose/Sodium Chloride (D5/0.45ns) 1,000 mls @ 150 mls/hr IV DIRECT ADONIS Sodium Chloride (Nacl 0.9% 1000 Ml) 1,000 mls @ 150 mls/hr IV DIRECT ADONIS Last Admin: 11/08/17 15:28 Dose: 150 mls/hr Vancomycin HCl 1,750 mg/ (Sodium Chloride) 517.5 mls @ 333.333 mls/hr IV Q12H ADONIS Ondansetron HCl (Zofran) 4 mg IV Q4H PRN PRN Reason: Nausea And Vomiting Oxycodone/Acetaminophen (Percocet 5/325) 1 tab PO Q6H PRN PRN Reason: Pain, Moderate (4-6) Sodium Chloride (Sodium Chloride Flush Syringe 10 Ml) 10 ml IV BID REPLACED BY [facility] Last Admin: 11/08/17 11:02 Dose: 10 ml Sodium Chloride (Sodium Chloride Flush Syringe 10 Ml) 10 ml IV PRN PRN PRN Reason: LINE FLUSH Vancomycin HCl (Vancomycin Pharmacy To Dose) 1 each IV PKCONSULT ADONIS; Protocol Review of Systems All systems: negative (10 point ROS performed and negative except for that listed in HPI) Exam Vital Signs Temp Pulse Resp BP Pulse Ox 97.6 F 108 H 18 146/96 95 11/08/17 01:13 11/08/17 01:13 11/08/17 01:13 11/08/17 01:13 11/08/17 01:13 Narrative exam: Gen: AAOx3. NAD ENT: no scleral icterus or conjunctival pallor CV: s1, S2+ resp: even and unlabored Abd: soft, NT, ND Ext: no c/c/e. 3 cm indurated and fluctuant area with surrounding cellulitis of anterior lower right leg. No drainage. + TTP Results - Labs 11/08/17 02:03 11/08/17 12:16 Abnormal lab results 11/08/17 11/08/17 11/08/17 Range/Units 01:43 02:03 02:03 RBC 5.28 H (3.65-5.03) M/mm3 [place] % (Auto) 13.7 H (0.0-7.3) % [place] # 1.3 H (0.0-0.8) K/mm3 VBG pH (7.320-7.420) Sodium 123 L (137-145) mmol/L Chloride 83.6 L (98-107) mmol/L Carbon Dioxide 19 L (22-30) mmol/L BUN 24 H (9-20) mg/dL Glucose 619 H* (75-100) mg/dL POC Glucose 492 H (70-105) Calcium (8.4-10.2) mg/dL 11/08/17 11/08/17 11/08/17 Range/Units 02:03 04:25 05:25 RBC (3.65-5.03) M/mm3 [place] % (Auto) (0.0-7.3) % [place] # (0.0-0.8) K/mm3 VBG pH 7.295 L (7.320-7.420) Sodium 126 L (137-145) mmol/L Chloride 86.0 L (98-107) mmol/L Carbon Dioxide 17 L (22-30) mmol/L BUN 24 H (9-20) mg/dL Glucose 528 H* (75-100) mg/dL POC Glucose 433 H (70-105) Calcium (8.4-10.2) mg/dL 11/08/17 11/08/17 11/08/17 Range/Units 06:25 06:35 07:28 RBC (3.65-5.03) M/mm3 [place] % (Auto) (0.0-7.3) % [place] # (0.0-0.8) K/mm3 VBG pH (7.320-7.420) Sodium 134 L D (137-145) mmol/L Chloride 93.9 L (98-107) mmol/L Carbon Dioxide 21 L (22-30) mmol/L BUN 21 H (9-20) mg/dL Glucose 362 H (75-100) mg/dL POC Glucose 359 H 328 H (70-105) Calcium (8.4-10.2) mg/dL 11/08/17 11/08/17 11/08/17 Range/Units 08:15 08:40 09:56 RBC (3.65-5.03) M/mm3 [place] % (Auto) (0.0-7.3) % [place] # (0.0-0.8) K/mm3 VBG pH (7.320-7.420) Sodium 135 L (137-145) mmol/L Chloride 96.5 L (98-107) mmol/L Carbon Dioxide 20 L (22-30) mmol/L BUN (9-20) mg/dL Glucose 290 H (75-100) mg/dL POC Glucose 272 H 242 H (70-105) Calcium 8.3 L (8.4-10.2) mg/dL 11/08/17 11/08/17 11/08/17 Range/Units 10:23 11:03 12:16 RBC (3.65-5.03) M/mm3 [place] % (Auto) (0.0-7.3) % [place] # (0.0-0.8) K/mm3 VBG pH (7.320-7.420) Sodium (137-145) mmol/L Chloride 97.1 L (98-107) mmol/L Carbon Dioxide 21 L 20 L (22-30) mmol/L BUN (9-20) mg/dL Glucose 236 H 196 H (75-100) mg/dL POC Glucose 216 H (70-105) Calcium 8.3 L (8.4-10.2) mg/dL 11/08/1718 11/08/17 Range/Units 14:23 16:04 17:30 RBC (3.65-5.03) M/mm3 [place] % (Auto) (0.0-7.3) % [place] # (0.0-0.8) K/mm3 VBG pH (7.320-7.420) Sodium (137-145) mmol/L Chloride (98-107) mmol/L Carbon Dioxide (22-30) mmol/L BUN (9-20) mg/dL Glucose (75-100) mg/dL POC Glucose 189 H 171 H 155 H (70-105) Calcium (8.4-10.2) mg/dL Diabetes panel 11/08/17 11/08/17 11/08/17 Range/Units 02:03 04:25 06:35 Sodium 123 L 126 L 134 L D (137-145) mmol/L Potassium 4.9 4.8 4.5 (3.6-5.0) mmol/L Chloride 83.6 L 86.0 L 93.9 L (98-107) mmol/L Carbon Dioxide 19 L 17 L 21 L (22-30) mmol/L BUN 24 H 24 H 21 H (9-20) mg/dL Creatinine 1.1 1.0 1.2 (0.8-1.5) mg/dL Glucose 619 H* 528 H* 362 H (75-100) mg/dL Calcium 9.2 9.3 8.7 (8.4-10.2) mg/dL 11/08/17 11/08/17 11/08/17 Range/Units 08:15 10:23 12:16 Sodium 135 L 137 137 (137-145) mmol/L Potassium 3.9 4.4 4.4 (3.6-5.0) mmol/L Chloride 96.5 L 97.1 L 98.2 (98-107) mmol/L Carbon Dioxide 20 L 21 L 20 L (22-30) mmol/L BUN 18 17 15 (9-20) mg/dL Creatinine 0.9 1.1 0.8 (0.8-1.5) mg/dL Glucose 290 H 236 H 196 H (75-100) mg/dL Calcium 8.3 L 8.3 L 8.4 (8.4-10.2) mg/dL Calcium panel 11/08/17 11/08/17 11/08/17 Range/Units 02:03 04:25 06:35 Calcium 9.2 9.3 8.7 (8.4-10.2) mg/dL 11/08/17 11/08/17 11/08/17 Range/Units 08:15 10:23 12:16 Calcium 8.3 L 8.3 L 8.4 (8.4-10.2) mg/dL Pituitary panel 11/08/17 11/08/17 11/08/17 Range/Units 02:03 04:25 06:35 Sodium 123 L 126 L 134 L D (137-145) mmol/L Potassium 4.9 4.8 4.5 (3.6-5.0) mmol/L Chloride 83.6 L 86.0 L 93.9 L (98-107) mmol/L Carbon Dioxide 19 L 17 L 21 L (22-30) mmol/L BUN 24 H 24 H 21 H (9-20) mg/dL Creatinine 1.1 1.0 1.2 (0.8-1.5) mg/dL Glucose 619 H* 528 H* 362 H (75-100) mg/dL Calcium 9.2 9.3 8.7 (8.4-10.2) mg/dL 11/08/17 11/08/17 11/08/17 Range/Units 08:15 10:23 12:16 Sodium 135 L 137 137 (137-145) mmol/L Potassium 3.9 4.4 4.4 (3.6-5.0) mmol/L Chloride 96.5 L 97.1 L 98.2 (98-107) mmol/L Carbon Dioxide 20 L 21 L 20 L (22-30) mmol/L BUN 18 17 15 (9-20) mg/dL Creatinine 0.9 1.1 0.8 (0.8-1.5) mg/dL Glucose 290 H 236 H 196 H (75-100) mg/dL Calcium 8.3 L 8.3 L 8.4 (8.4-10.2) mg/dL Adrenal panel 11/08/17 11/08/17 11/08/17 Range/Units 02:03 04:25 06:35 Sodium 123 L 126 L 134 L D (137-145) mmol/L Potassium 4.9 4.8 4.5 (3.6-5.0) mmol/L Chloride 83.6 L 86.0 L 93.9 L (98-107) mmol/L Carbon Dioxide 19 L 17 L 21 L (22-30) mmol/L BUN 24 H 24 H 21 H (9-20) mg/dL Creatinine 1.1 1.0 1.2 (0.8-1.5) mg/dL Glucose 619 H* 528 H* 362 H (75-100) mg/dL Calcium 9.2 9.3 8.7 (8.4-10.2) mg/dL 11/08/17 11/08/17 11/08/17 Range/Units 08:15 10:23 12:16 Sodium 135 L 137 137 (137-145) mmol/L Potassium 3.9 4.4 4.4 (3.6-5.0) mmol/L Chloride 96.5 L 97.1 L 98.2 (98-107) mmol/L Carbon Dioxide 20 L 21 L 20 L (22-30) mmol/L BUN 18 17 15 (9-20) mg/dL Creatinine 0.9 1.1 0.8 (0.8-1.5) mg/dL Glucose 290 H 236 H 196 H (75-100) mg/dL Calcium 8.3 L 8.3 L 8.4 (8.4-10.2) mg/dL - Imaging Additional studies: XRAY RLE Assessment and Plan 41 yo M with 1. right leg abscess 2. DKA PLan: 1. Will perform I&D at the bedside. All risks, benefits, alternatives discussed with the patient and questions answered. Consent obtained. 2. strict glucose control - pt on insulin gtt 3. prn pain control - ibuprofen or tylenol 4. IVF 5. DKA management per hospitalist and ICU Thank you for this consultation, please call with questions or concerns.
--- NOTE | 2017-11-08 18:52 | Procedure Note ---
Date of procedure: 11/08/17 Pre-op diagnosis: right leg abscess Post-op diagnosis: same Procedure: incision and drainage right leg abscess Findings: 5 cc of pus Anesthesia: local Surgeon: CHRISTIANO STYLES Estimated blood loss: minimal Pathology: list (wound cultures) Specimen disposition: to lab Condition: stable Disposition: floor
[2017-11-08] MEDS: PERCOCET 5/325 PO PRN (19:00)
[2017-11-08] MEDS: D5/0.45NS 1,000 ML IV SCH (20:17)
[2017-11-08] MEDS: VANCOMYCIN 1,750 MG in NACL 0.9% 500 ML 500 ML IV SCH (21:05)
[2017-11-08 22:34] LABS: BUN/Creatinine Ratio 18; Blood Urea Nitrogen 11 mg/dL (9-20); Hemolysis Index 20
[2017-11-09] MEDS: HumuLIN R 100 UNITS in NACL 0.9% 99 ML IV SCH (03:14)
[2017-11-09] MEDS: D5/0.45NS 1,000 ML IV SCH (03:14)
[2017-11-09] MEDS: VANCOMYCIN 1,750 MG in NACL 0.9% 500 ML 500 ML IV SCH ×2 (05:35→18:23)
[2017-11-09 05:49] LABS: Hemoglobin 13.3 gm/dl (11.8-15.2); Mean Corpuscular HGB Conc 33 % (32-34); Mean Corpuscular Hemoglobin 27 pg (28-32); Mean Corpuscular Volume 82 fl (84-94); Platelet Count 182 K/mm3 (140-440); Red Blood Count 4.87 M/mm3 (3.65-5.03); Red Cell Distribution Width 15.3 % (13.2-15.2)
[2017-11-09] MEDS: PERCOCET 5/325 PO PRN ×3 (06:17→21:50)
[2017-11-09 07:00] LABS: BUN/Creatinine Ratio 13; Blood Urea Nitrogen 9 mg/dL (9-20); Calcium 8.3 mg/dL (8.4-10.2); Hemolysis Index 2
[2017-11-09] MEDS ORDERED: LANTUS SUB-Q NR (08:54)
[2017-11-09] MEDS ORDERED: K-DUR PO ONE (09:44)
[2017-11-09] MEDS ORDERED: ZOFRAN IV PRN (09:47)
[2017-11-09] MEDS ORDERED: REGLAN IV PRN (09:47)
[2017-11-09] MEDS: NACL 0.9% 1000 ML 1,000 ML IV SCH (09:56)
[2017-11-09] MEDS: SODIUM CHLORIDE FLUSH SYRINGE 10 ML IV SCH ×2 (10:04→21:40)
[2017-11-09] MEDS: LOVENOX SUB-Q SCH (10:04)
[2017-11-09] MEDS: cefTRIAXone 1 GM in NACL 0.9% 20 ML IV SCH (10:04)
[2017-11-09] MEDS ORDERED: D50W (25GM) Syringe IV PRN (11:58)
[2017-11-09] MEDS: HumaLOG SUB-Q SCH ×3 (12:41→21:44)
[2017-11-09] MEDS ORDERED: PROAIR IH PRN (15:52)
--- NOTE | 2017-11-09 15:57 | Progress Note ---
Assessment and Plan Assessment and plan: Patient is a 41 year-old man with a history of hypertension, recently diagnosis type 2 diabetes, JASMYNE comes to the ER for nausea and lethargy. Also complain of pain on the anterior RLE that started 1 week ago. He will be admitted to ICU. -DKA: anion gap still high, most likely due to infection of the right anterior tibia, continue insulin drip, IVF, npo, serial bmp -Acute metabolic encephalopathy with lethargy due to the above. -Cellulitis of RLE with abscess vs hematoma: consult Gen. surgery, start iv vancomycin -Hypertension: restart antihypertensives -JASMYNE: consult respiratory therapy -DVT prophylaxis: sq lovenox Date of procedure: 11/08/17 Pre-op diagnosis: right leg abscess Post-op diagnosis: same Procedure: incision and drainage right leg abscess Findings: 5 cc of pus Anesthesia: local Surgeon: CHRISTIANO STYLES Estimated blood loss: minimal Pathology: list (wound cultures) Specimen disposition: to lab Condition: stable Disposition: floor Anion gap closed, transition to basal/bolus. Transfer to floor follow wound cultures CCT 34 minutes History Interval history: Patient was seen and examined. Follow-up on current diagnosis of DKA. Overnight uneventful. Patient denies any chest pain, shortness breath, or severe headaches. Imaging, nursing note, chart, labs and old chart reviewed. Discussed with patient. Hospitalist Physical - Physical exam Narrative exam: GEN: WDWN, NAD, lethargic Orientated HEENT: NCAT, EOMI, PERRL, OP Clear but dry NECK: supple, no adenopathy, no thyromegaly, no JVD CVS/HEART: RRR, normal S1S2, pulses present bilaterally CHEST/LUNGS: CTA B, Symmetrical chest expansion, good air entry bilaterally GI/Abdomen: soft, NTND, good bowel sounds, no guarding or rebound /Bladder: no suprapubic tenderness, no CVA or paraspinal tenderness EXT/Skin: no c/c/e, no obvious rash MSK: FROM x 4 Neuro: CN 2-12 grossly intact, no new focal deficits Psych: calm - Constitutional Vitals: Temp Pulse Resp BP Pulse Ox 99.6 F 88 15 153/87 97 11/09/17 03:10 11/09/17 13:01 11/09/17 13:01 11/09/17 14:13 11/08/17 07:00 Results - Labs CBC & Chem 7: 11/09/17 05:11 11/09/17 05:11 Labs: Laboratory Last Values WBC 7.1 K/mm3 (4.5-11.0) 11/09/17 05:11 RBC 4.87 M/mm3 (3.65-5.03) 11/09/17 05:11 Hgb 13.3 gm/dl (11.8-15.2) 11/09/17 05:11 Hct 40.0 % (35.5-45.6) 11/09/17 05:11 MCV 82 fl (84-94) L 11/09/17 05:11 MCH 27 pg (28-32) L 11/09/17 05:11 MCHC 33 % (32-34) 11/09/17 05:11 RDW 15.3 % (13.2-15.2) H 11/09/17 05:11 Plt Count 182 K/mm3 (140-440) 11/09/17 05:11 Lymph % (Auto) 20.6 % (13.4-35.0) 11/08/17 02:03 [place] % (Auto) 13.7 % (0.0-7.3) H 11/08/17 02:03 Eos % (Auto) 4.0 % (0.0-4.3) 11/08/17 02:03 Baso % (Auto) 0.7 % (0.0-1.8) 11/08/17 02:03 Lymph # 1.9 K/mm3 (1.2-5.4) 11/08/17 02:03 [place] # 1.3 K/mm3 (0.0-0.8) H 11/08/17 02:03 Eos # 0.4 K/mm3 (0.0-0.4) 11/08/17 02:03 Baso # 0.1 K/mm3 (0.0-0.1) 11/08/17 02:03 Seg Neutrophils % 61.0 % (40.0-70.0) 11/08/17 02:03 Seg Neutrophils # 5.7 K/mm3 (1.8-7.7) 11/08/17 02:03 VBG pH 7.295 (7.320-7.420) L 11/08/17 02:03 Sodium 140 mmol/L (137-145) 11/09/17 05:11 Potassium 3.2 mmol/L (3.6-5.0) L 11/09/17 05:11 Chloride 101.4 mmol/L (98-107) 11/09/17 05:11 Carbon Dioxide 24 mmol/L (22-30) 11/09/17 05:11 Anion Gap 18 mmol/L 11/09/17 05:11 BUN 9 mg/dL (9-20) 11/09/17 05:11 Creatinine 0.7 mg/dL (0.8-1.5) L 11/09/17 05:11 Estimated GFR > 60 ml/min 11/09/17 05:11 BUN/Creatinine Ratio 13 % 11/09/17 05:11 Glucose 143 mg/dL (75-100) H 11/09/17 05:11 POC Glucose 322 (70-105) H 11/09/17 11:47 Hemoglobin A1c 11.9 % (4-6) H 11/09/17 05:11 Osmolality 310 Mosm/kg 11/08/17 04:25 Lactic Acid 1.10 mmol/L (0.7-2.0) 11/08/17 02:03 Calcium 8.3 mg/dL (8.4-10.2) L 11/09/17 05:11 Urine Color Straw (Yellow) 11/08/17 Unknown Urine Turbidity Clear (Clear) 11/08/17 Unknown Urine pH 6.0 (5.0-7.0) 11/08/17 Unknown Ur Specific [place] 1.026 (1.003-1.030) 11/08/17 Unknown Urine Protein <15 mg/dl mg/dL (Negative) 11/08/17 Unknown Urine Glucose (UA) >=500 mg/dL (Negative) 11/08/17 Unknown Urine Ketones 80 mg/dL (Negative) 11/08/17 Unknown Urine Blood Neg (Negative) 11/08/17 Unknown Urine Nitrite Neg (Negative) 11/08/17 Unknown Urine Bilirubin Neg (Negative) 11/08/17 Unknown Urine Urobilinogen < 2.0 mg/dL (<2.0) 11/08/17 Unknown Ur Leukocyte Esterase Neg (Negative) 11/08/17 Unknown Urine WBC (Auto) 1.0 /HPF (0.0-6.0) 11/08/17 Unknown Urine RBC (Auto) < 1.0 /HPF (0.0-6.0) 11/08/17 Unknown Urine Mucus Few /HPF 11/08/17 Unknown
[2017-11-09] MEDS ORDERED: PROVENTIL IH PRN (15:59)
[2017-11-09] MEDS ORDERED: NORVASC PO SCH (16:00)
[2017-11-09] MEDS: NORVASC PO SCH (16:09)
--- NOTE | 2017-11-09 16:57 | Progress Note ---
Assessment and Plan 41 yo M s/p bedside incision and drainage right leg abscess 11/08/17 1. continue nursing local wound care daily with packing changes 2. transition to oral abx on discharge x 10 days 3. strict glucose control 4. final cultures pending 5. may follow up in wound care clinic or in surgery office upon discharge. Please call with questions or concerns. Subjective Date of service: 11/09/17 Narrative: Pt seen and examined. Feels better today. C/o soreness at site of I&D of right leg. Objective Vital Signs - 12hr 11/09/17 11/09/17 11/09/17 05:01 06:00 06:01 Pulse Rate 91 H 107 H Pulse Rate [ 87 From Monitor] Respiratory 19 16 19 Rate Blood Pressure 149/92 149/92 11/09/17 11/09/17 11/09/17 07:01 08:00 08:01 Pulse Rate 91 H 78 Pulse Rate [ 78 From Monitor] Respiratory 21 15 15 Rate Blood Pressure 11/09/17 11/09/17 11/09/17 09:01 10:01 11:01 Pulse Rate 83 100 H 73 Pulse Rate [ From Monitor] Respiratory 15 12 9 L Rate Blood Pressure 11/09/17 11/09/17 11/09/17 12:01 13:01 14:13 Pulse Rate 108 H 88 Pulse Rate [ From Monitor] Respiratory 12 15 Rate Blood Pressure 153/87 11/09/17 16:09 Pulse Rate 84 Pulse Rate [ From Monitor] Respiratory Rate Blood Pressure 149/92 - General physical appearance Narrative Exam: Gen: AAOx3. NAd RLE wound: all packing removed. No drainage from wound. Periwound area has mild induration but no fluctuance. Wound packed with one piece of 1/4 inch iodoform, covered with 4x4 gauze and tape. - Labs 11/09/17 05:11 11/09/17 05:11 Diabetes panel 11/08/17 11/09/17 11/09/17 Range/Units 21:58 05:11 05:11 Sodium 140 140 (137-145) mmol/L Potassium 3.8 3.2 L (3.6-5.0) mmol/L Chloride 103.5 101.4 (98-107) mmol/L Carbon Dioxide 21 L 24 (22-30) mmol/L BUN 11 9 (9-20) mg/dL Creatinine 0.6 L 0.7 L (0.8-1.5) mg/dL Glucose 164 H 143 H (75-100) mg/dL Hemoglobin A1c 11.9 H (4-6) % Calcium 8.0 L 8.3 L (8.4-10.2) mg/dL Calcium panel 11/08/17 11/09/17 Range/Units 21:58 05:11 Calcium 8.0 L 8.3 L (8.4-10.2) mg/dL Pituitary panel 11/08/17 11/09/17 Range/Units 21:58 05:11 Sodium 140 140 (137-145) mmol/L Potassium 3.8 3.2 L (3.6-5.0) mmol/L Chloride 103.5 101.4 (98-107) mmol/L Carbon Dioxide 21 L 24 (22-30) mmol/L BUN 11 9 (9-20) mg/dL Creatinine 0.6 L 0.7 L (0.8-1.5) mg/dL Glucose 164 H 143 H (75-100) mg/dL Calcium 8.0 L 8.3 L (8.4-10.2) mg/dL Adrenal panel 11/08/17 11/09/17 Range/Units 21:58 05:11 Sodium 140 140 (137-145) mmol/L Potassium 3.8 3.2 L (3.6-5.0) mmol/L Chloride 103.5 101.4 (98-107) mmol/L Carbon Dioxide 21 L 24 (22-30) mmol/L BUN 11 9 (9-20) mg/dL Creatinine 0.6 L 0.7 L (0.8-1.5) mg/dL Glucose 164 H 143 H (75-100) mg/dL Calcium 8.0 L 8.3 L (8.4-10.2) mg/dL
[2017-11-09] MEDS: LOPRESSOR PO SCH (21:32)
[2017-11-10] MEDS: VANCOMYCIN 1,750 MG in NACL 0.9% 500 ML 500 ML IV SCH (06:51)
[2017-11-10 08:10] LABS: Hematocrit 38.7 % (35.5-45.6); Hemoglobin 12.9 gm/dl (11.8-15.2); Mean Corpuscular HGB Conc 33 % (32-34); Mean Corpuscular Hemoglobin 28 pg (28-32); Mean Corpuscular Volume 82 fl (84-94); Platelet Count 158 K/mm3 (140-440); Red Cell Distribution Width 15.3 % (13.2-15.2)
[2017-11-10] MEDS: HumaLOG SUB-Q SCH ×3 (08:20→17:06)
[2017-11-10 08:39] LABS: BUN/Creatinine Ratio 13; Blood Urea Nitrogen 9 mg/dL (9-20); Calcium 8.5 mg/dL (8.4-10.2); Hemolysis Index 2
[2017-11-10] MEDS ORDERED: DIOVAN PO SCH (10:00)
[2017-11-10] MEDS ORDERED: LANTUS SUB-Q SCH (10:00)
[2017-11-10] MEDS: NACL 0.9% 1000 ML 1,000 ML IV SCH (11:33)
[2017-11-10] MEDS: LOVENOX SUB-Q SCH (11:33)
[2017-11-10] MEDS: NORVASC PO SCH (11:34)
[2017-11-10] MEDS: LOPRESSOR PO SCH (11:34)
--- NOTE | 2017-11-10 11:59 | Progress Note ---
Assessment and Plan Assessment and plan: Patient is a 41 year-old man with a history of hypertension, recently diagnosis type 2 diabetes, JASMYNE comes to the ER for nausea and lethargy. Also complain of pain on the anterior RLE that started 1 week ago. He will be admitted to ICU. -DKA, resolved: continue to adjust insulin -IDDM now: diet teaching done, pt did give himself insulin -Acute metabolic encephalopathy with lethargy due to the above, resolved -Cellulitis of RLE with abscess s/p i-n-d per Gen. surgery, started iv vancomycin -Hypertension: restart antihypertensives -JASMYNE: consult respiratory therapy -DVT prophylaxis: sq lovenox Date of procedure: 11/08/17 Pre-op diagnosis: right leg abscess Post-op diagnosis: same Procedure: incision and drainage right leg abscess Findings: 5 cc of pus Anesthesia: local Surgeon: CHRISTIANO STYLES Estimated blood loss: minimal Pathology: list (wound cultures) Specimen disposition: to lab Condition: stable Disposition: floor 24 hrs insulin requirement per SSI ~18 units/24h, will adust Insulin waiting on wound ctx to finalize, growing st. aureus. will place in mrsa isolation just in case History Interval history: Patient was seen and examined. Follow-up on current diagnosis of DKA. Overnight uneventful. Patient denies any chest pain, shortness breath, or severe headaches. Imaging, nursing note, chart, labs and old chart reviewed. Discussed with patient. Hospitalist Physical - Physical exam Narrative exam: GEN: WDWN, NAD, awake alert Orientated x 3, bmi 37.3 HEENT: NCAT, EOMI, PERRL, OP Clear but dry NECK: supple, no adenopathy, no thyromegaly, no JVD CVS/HEART: RRR, normal S1S2, pulses present bilaterally CHEST/LUNGS: CTA B, Symmetrical chest expansion, good air entry bilaterally GI/Abdomen: soft, NTND, good bowel sounds, no guarding or rebound /Bladder: no suprapubic tenderness, no CVA or paraspinal tenderness EXT/Skin: anterior gould wound dsg c/d/i MSK: FROM x 4 Neuro: CN 2-12 grossly intact, no new focal deficits Psych: calm - Constitutional Vitals: Temp Pulse Resp BP Pulse Ox 98.4 F 88 20 170/102 100 11/09/17 20:15 11/10/17 08:00 11/10/17 08:00 11/10/17 11:34 11/10/17 02:30 Results - Labs CBC & Chem 7: 11/10/17 06:08 11/10/17 06:08 Labs: Laboratory Last Values WBC 4.4 K/mm3 (4.5-11.0) L 11/10/17 06:08 RBC 4.70 M/mm3 (3.65-5.03) 11/10/17 06:08 Hgb 12.9 gm/dl (11.8-15.2) 11/10/17 06:08 Hct 38.7 % (35.5-45.6) 11/10/17 06:08 MCV 82 fl (84-94) L 11/10/17 06:08 MCH 28 pg (28-32) 11/10/17 06:08 MCHC 33 % (32-34) 11/10/17 06:08 RDW 15.3 % (13.2-15.2) H 11/10/17 06:08 Plt Count 158 K/mm3 (140-440) 11/10/17 06:08 Lymph % (Auto) 20.6 % (13.4-35.0) 11/08/17 02:03 [place] % (Auto) 13.7 % (0.0-7.3) H 11/08/17 02:03 Eos % (Auto) 4.0 % (0.0-4.3) 11/08/17 02:03 Baso % (Auto) 0.7 % (0.0-1.8) 11/08/17 02:03 Lymph # 1.9 K/mm3 (1.2-5.4) 11/08/17 02:03 [place] # 1.3 K/mm3 (0.0-0.8) H 11/08/17 02:03 Eos # 0.4 K/mm3 (0.0-0.4) 11/08/17 02:03 Baso # 0.1 K/mm3 (0.0-0.1) 11/08/17 02:03 Seg Neutrophils % 61.0 % (40.0-70.0) 11/08/17 02:03 Seg Neutrophils # 5.7 K/mm3 (1.8-7.7) 11/08/17 02:03 VBG pH 7.295 (7.320-7.420) L 11/08/17 02:03 Sodium 137 mmol/L (137-145) 11/10/17 06:08 Potassium 3.7 mmol/L (3.6-5.0) 11/10/17 06:08 Chloride 96.4 mmol/L (98-107) L 11/10/17 06:08 Carbon Dioxide 25 mmol/L (22-30) 11/10/17 06:08 Anion Gap 19 mmol/L 11/10/17 06:08 BUN 9 mg/dL (9-20) 11/10/17 06:08 Creatinine 0.7 mg/dL (0.8-1.5) L 11/10/17 06:08 Estimated GFR > 60 ml/min 11/10/17 06:08 BUN/Creatinine Ratio 13 % 11/10/17 06:08 Glucose 265 mg/dL (75-100) H 11/10/17 06:08 POC Glucose 294 (70-105) H 11/10/17 06:21 Hemoglobin A1c 11.9 % (4-6) H 11/09/17 05:11 Osmolality 310 Mosm/kg 11/08/17 04:25 Lactic Acid 1.10 mmol/L (0.7-2.0) 11/08/17 02:03 Calcium 8.5 mg/dL (8.4-10.2) 11/10/17 06:08 Urine Color Straw (Yellow) 11/08/17 Unknown Urine Turbidity Clear (Clear) 11/08/17 Unknown Urine pH 6.0 (5.0-7.0) 11/08/17 Unknown Ur Specific [place] 1.026 (1.003-1.030) 11/08/17 Unknown Urine Protein <15 mg/dl mg/dL (Negative) 11/08/17 Unknown Urine Glucose (UA) >=500 mg/dL (Negative) 11/08/17 Unknown Urine Ketones 80 mg/dL (Negative) 11/08/17 Unknown Urine Blood Neg (Negative) 11/08/17 Unknown Urine Nitrite Neg (Negative) 11/08/17 Unknown Urine Bilirubin Neg (Negative) 11/08/17 Unknown Urine Urobilinogen < 2.0 mg/dL (<2.0) 11/08/17 Unknown Ur Leukocyte Esterase Neg (Negative) 11/08/17 Unknown Urine WBC (Auto) 1.0 /HPF (0.0-6.0) 11/08/17 Unknown Urine RBC (Auto) < 1.0 /HPF (0.0-6.0) 11/08/17 Unknown Urine Mucus Few /HPF 11/08/17 Unknown
[2017-11-10] MEDS: SODIUM CHLORIDE FLUSH SYRINGE 10 ML IV SCH (12:38)
[2017-11-10] MEDS: cefTRIAXone 1 GM in NACL 0.9% 20 ML IV SCH (12:44)
--- NOTE | 2017-11-10 14:11 | Discharge Summary ---
<CHRISTIANO STYLES - Last Filed: 11/10/17 14:40> Providers - Providers Date of Admission: 11/08/17 05:35 Attending physician: SALLY TURPIN 11/08/17 15:42 Consult to Physician [CONS] Routine Comment: Consulting Provider: EHSAN RODRIGUEZ Physician Instructions: Reason For Exam: Evaluate for right pre-tibia abscess Primary care physician: [employer] Hospitalization Condition: Stable Disposition: DC-01 TO HOME OR SELFCARE Exam - Constitutional Vitals: Temp Pulse Resp BP Pulse Ox 98.4 F 80 20 170/102 100 11/09/17 20:15 11/10/17 10:00 11/10/17 08:00 11/10/17 11:34 11/10/17 02:30 Plan Wound: other (Remove all packing from the wound. Clean wound with soap and water in the shower. Pat dry. Repack wound with one piece of packing (provided) . Cover with gauze and tape. Perform wound care daily) Additional Instructions: Call to make an appointment to follow up with Dr. Styles on 11/14 in the wound care clinic. [address] [facility] [address], [place] [address] Follow up with: PRIMARY MD JENNIFER [Primary Care Provider] - 3-5 Days CHRISTIANO STYLES DO [Staff Physician] - 7 Days Prescriptions: Insulin NPH/Regular [Novolin 70/30] 7 unit SQ BIDDIAB #100 ml Insulin Regular, Human [Novolin R] 1 dose SQ TIDAC PRN #1 vial PRN Reason: Hyperglycemia oxyCODONE /ACETAMINOPHEN [Percocet 5/325 mg] 1 tab PO Q6H PRN #10 tablet PRN Reason: Pain, Moderate (4-6) Sulfamethoxazole/Trimethoprim [Bactrim DS TAB] 1 each PO BID #20 tablet <SALLY TURPIN - Last Filed: 11/10/17 14:56> Providers - Providers Date of Admission: 11/08/17 05:35 Date of discharge: 11/10/17 Attending physician: SALLY TURPIN 11/08/17 15:42 Consult to Physician [CONS] Routine Comment: Consulting Provider: EHSAN RODRIGUEZ Physician Instructions: Reason For Exam: Evaluate for right pre-tibia abscess Primary care physician: [employer] Hospitalization Hospital course: Patient is a 41 year-old man with a history of hypertension, recently diagnosis type 2 diabetes, JASMYNE comes to the ER for nausea and lethargy. Also complain of pain on the anterior RLE that started 1 week ago. He will be admitted to ICU. -DKA, resolved: continue to adjust insulin -IDDM now: diet teaching done, pt did give himself insulin -Acute metabolic encephalopathy with lethargy due to the above, resolved -Cellulitis of RLE with abscess s/p i-n-d per Gen. surgery, started iv vancomycin -Hypertension: restart antihypertensives -JASMYNE: consult respiratory therapy -DVT prophylaxis: sq lovenox Date of procedure: 11/08/17 Pre-op diagnosis: right leg abscess Post-op diagnosis: same Procedure: incision and drainage right leg abscess Findings: 5 cc of pus Anesthesia: local Surgeon: CHRISTIANO STYLES Estimated blood loss: minimal Pathology: list (wound cultures) Specimen disposition: to lab Condition: stable Disposition: floor 24 hrs insulin requirement per SSI ~18 units/24h, will adust Insulin waiting on wound ctx to finalize, growing st. aureus. will place in mrsa isolation just in case ==>ok to d/c per Dr. Styles, she will follow up culture Insulin changed for cost Time spent for discharge: 32 minutes Core Measure Documentation - Palliative Care Palliative Care/ Comfort Measures: Not Applicable - Core Measures Any of the following diagnoses?: none - VTE Discharge Requirements Deep Vein Thrombosis/Pulmonary Embolism Present on Admission: No Has pt received <5 days of overlap therapy or INR<2.0: No Anticoagulant overlap therapy prescribed at discharge: No Contraindication No Overlap Therapy order at DC: Not Indicated Exam - Physical Exam Narrative exam: GEN: WDWN, NAD, awake alert Orientated x 3, bmi 37.3 HEENT: NCAT, EOMI, PERRL, OP Clear but dry NECK: supple, no adenopathy, no thyromegaly, no JVD CVS/HEART: RRR, normal S1S2, pulses present bilaterally CHEST/LUNGS: CTA B, Symmetrical chest expansion, good air entry bilaterally GI/Abdomen: soft, NTND, good bowel sounds, no guarding or rebound /Bladder: no suprapubic tenderness, no CVA or paraspinal tenderness EXT/Skin: anterior gould wound dsg c/d/i MSK: FROM x 4 Neuro: CN 2-12 grossly intact, no new focal deficits Psych: calm - Constitutional Vitals: Temp Pulse Resp BP Pulse Ox 98.4 F 80 20 170/102 100 11/09/17 20:15 11/10/17 10:00 11/10/17 08:00 11/10/17 11:34 11/10/17 02:30 Plan Activity: other (no stenous activity until cleared by Dr. Styles) Diet: low salt, diabetic Wound: per wound nurse instructions Special Instructions: record daily BP diary, record blood sugar diary (achs)
--- NOTE | 2017-11-10 14:40 | Progress Note ---
Assessment and Plan 41 yo M s/p bedside incision and drainage right leg abscess 11/08/17 1. RN to perform dressing change and teach family member and patient on dressing changes 2. transition to oral Bactrim on discharge x 10 days. cx - staph, final pending 3. strict glucose control 4. patient to follow up in wound care clinic or surgery clinic in 3-4 days - needs to make appointment 5. ok for dc from surgery standpoint D/W Dr. Olmedo Please call with questions or concerns. Subjective Date of service: 11/10/17 Narrative: Pt seen and examined. c/o soreness at I&D site. No f/c. Objective Vital Signs - 12hr 11/10/17 11/10/17 11/10/17 08:00 10:00 11:34 Pulse Rate 80 Pulse Rate [ 88 Left] Respiratory 20 Rate Blood Pressure 133/82 170/102 - General physical appearance Narrative Exam: Gen: AAOx3. NAD LLE: dressing c/d/i. Erythema has improved. - Labs 11/10/17 06:08 11/10/17 06:08 Diabetes panel 11/10/17 Range/Units 06:08 Sodium 137 (137-145) mmol/L Potassium 3.7 (3.6-5.0) mmol/L Chloride 96.4 L (98-107) mmol/L Carbon Dioxide 25 (22-30) mmol/L BUN 9 (9-20) mg/dL Creatinine 0.7 L (0.8-1.5) mg/dL Glucose 265 H (75-100) mg/dL Calcium 8.5 (8.4-10.2) mg/dL Calcium panel 11/10/17 Range/Units 06:08 Calcium 8.5 (8.4-10.2) mg/dL Pituitary panel 11/10/17 Range/Units 06:08 Sodium 137 (137-145) mmol/L Potassium 3.7 (3.6-5.0) mmol/L Chloride 96.4 L (98-107) mmol/L Carbon Dioxide 25 (22-30) mmol/L BUN 9 (9-20) mg/dL Creatinine 0.7 L (0.8-1.5) mg/dL Glucose 265 H (75-100) mg/dL Calcium 8.5 (8.4-10.2) mg/dL Adrenal panel 11/10/17 Range/Units 06:08 Sodium 137 (137-145) mmol/L Potassium 3.7 (3.6-5.0) mmol/L Chloride 96.4 L (98-107) mmol/L Carbon Dioxide 25 (22-30) mmol/L BUN 9 (9-20) mg/dL Creatinine 0.7 L (0.8-1.5) mg/dL Glucose 265 H (75-100) mg/dL Calcium 8.5 (8.4-10.2) mg/dL
[2017-11-10 16:50] VITALS: BP 137/97
[2017-11-10] MEDS ORDERED: LANTUS SUB-Q ONE (22:00)
[2017-11-11] MEDS ORDERED: LANTUS SUB-Q SCH (08:00)
== END 2017-11-10 17:30 | disposition home or self-care (01) | DRG 602 ==
LOC: ED → CC1 05:35 → 3A 11-10 00:03
PROVIDERS: ADMIT Internal Medicine; ATTEND Internal Medicine
PROC: 0H9KXZZ Drainage of Right Lower Leg Skin, External Approach (ICD-10-PCS; principal; 2017-11-08)
PROC: 5A09357 Assistance with Respiratory Ventilation, Less than 24 Consecutive Hours, Continuous Positive Airway Pressure (ICD-10-PCS; 2017-11-10)
DX: L03.115 Cellulitis of right lower limb (principal); E11.10 Type 2 diabetes mellitus with ketoacidosis without coma; G93.41 Metabolic encephalopathy; I10 Essential (primary) hypertension; J45.909 Unspecified asthma, uncomplicated; L02.415 Cutaneous abscess of right lower limb; G47.33 Obstructive sleep apnea (adult) (pediatric)
CPT/HCPCS: 36415; 80048; 81001; 82140; 82805; 82962; 83036; 83930; 85025; 85027; 87040; 87076; 87116; 87186; 94660; J0696; J1650; J1815; J3370; J7030; J7040